=== PATIENT | male | born 1950 | race Caucasian/White ===

== ENCOUNTER 2016-10-21 16:47 | Emergency (ER) | payer MEDICARE, BC ==
[~2016-10-21] VITALS: Ht 175.3 cm; Wt 78.3 kg
[2016-10-21] MEDS ORDERED: PRIM50TA PO (17:21)
[2016-10-21] MEDS ORDERED: AMLO10TA2 PO (17:21)
[2016-10-21] MEDS ORDERED: SODIUM CHLORIDE FLUSH 10ML SYR IVF ONE (17:30)
[2016-10-21 17:38] LABS: ASPARTATE AMINO TRANSFERASE 23 U/L (15-37); BLOOD UREA NITROGEN 23 mg/dL (7-18)
[2016-10-21 17:44] LABS: IS PT STATUS REG ER OR PRE ER? YES
[2016-10-21] MEDS ORDERED: METOCLOPRAMIDE 5 MG/ML, 2ML ONE (18:43)
[2016-10-21] MEDS ORDERED: METOCLOPRAMIDE 5 MG/ML, 2ML IM ONE (19:00)
[2016-10-21 19:55] VITALS: BP 146/90
== END 2016-10-21 19:59 | disposition home or self-care (01) ==
LOC: ED 19:53
DX: I10 Essential (primary) hypertension (principal); R06.6 Hiccough; D72.829 Elevated white blood cell count, unspecified
CPT/HCPCS: 36415; 71010; 80053; 84484; 85025; 93005; 96372; 99285; J2765